=== PATIENT | male | born 1975 | race Caucasian/White ===

== ENCOUNTER → 2023-12-04 | Outpatient (CLI) | payer OTHER ==
--- NOTE | 2023-12-04 13:54 | P.HPBAR ---
Bariatric H&P - History & Physicial H&P Date: 12/04/23 History & Physicial: Visit/CC: initial clinic visit Patient initial contact: Initial weight: Initial weight in pounds: Height: 5 ft 10 in Initial BMI: Last weight: Current weight: 142.428 kg Current weight in pounds: 314.00 Current BMI: 45.0 [place] body weight (based on NIH guidelines): 75.296 kg Excess body weight loss: The patient is a 47 year-old M who presents for Bariatric Assessment. DATE OF SERVICE: 12/04/23 REASON FOR CONSULTATION: History of gastric bypass with complications, morbid obesity HISTORY OF PRESENT ILLNESS: Xavier Daugherty is a 47-year-old male who comes with lifelong morbid obesity. He had prior Ghada-en-Y gastric bypass with [place] [address] [place]. Patient reports having hemorrhaging from the surgery requiring repeat surgery. He then developed a stricture with weight loss down to 165 pounds. He reports complications from multiple balloon dilations with rupture of his gastric pouch requiring emergency surgery. As result of multiple operations, he reports he cannot eat raw vegetables. He cannot eat solids. He does not follow-up with any bariatric provider since 2016, 8 years ago. Reports weight gain up to 220 to 230 pounds. Reports chronic fatigue. Due to the severity of his stricture and dysphagia, he presents similar first time in consultation for bariatric follow-up for his gastric bypass. He still has his gallbladder. Reports epigastric pain. At height of 5 feet 10 inches, ideal body weight is 173 pounds. His highest weight is 415 pounds, body mass index 59.7. His lowest weight is 165 pounds. He has gained 149 pounds. Prior lifetime weight loss 250 pounds. He comes in 314 pounds. Lifetime weight loss declined to 101 pounds. Lifetime percent excess weight loss 42% decreased from 103%. He is 141 pounds overweight. PAST MEDICAL HISTORY: 1. Morbid obesity due to excess calories 2. Body mass index of 59.7, initial 3. Osteoarthritis of the knees. 4. Osteoarthritis of the lower back. 5. Gastroesophageal reflux disease 6. Obstructive sleep apnea PAST SURGICAL HISTORY: 1. Gastric bypass with complications of multiple revision 2. Upper endoscopy with dilation HOME MEDICATIONS: Not recorded at this time ALLERGIES: Not recorded at this time SOCIAL HISTORY: No current tobacco abuse FAMILY HISTORY: No family history of ulcerative colitis disease or Crohn's disease. Family history of morbid obesity. No lupus in the family. No reports of stomach or esophageal cancer. REVIEW OF ORGAN SYSTEMS: CONSTITUTIONAL: At height of 5 feet 10 inches, ideal body weight is 173 pounds. His highest weight is 415 pounds, body mass index 59.7. His lowest weight is 165 pounds. Prior lifetime weight loss 250 pounds. HEENT: Denies any active troubles with vision or hearing. Has troubles with swallowing. ENDOCRINE: Denies diabetes. No hypothyroidism. CARDIOVASCULAR: Denies reports of palpitations or heart attacks or chest pain. RESPIRATORY: Has daytime somnolence. Has asthma. Has chronic obstructive pulmonary disease. GASTROINTESTINAL: No diarrhea. No constipation. Has gastroesophageal reflux disease. GENITOURINARY: Denies bladder urgency. No recent blood in urine MUSCULOSKELETAL: Has lower back pain and joint pain. Has osteoarthritis of the knees. NEURO: No headaches. No seizure disorders. Has neuropathy. PSYCH: Denies depression. No suicidal ideation. RHEUMATOLOGIC: No lupus. No rheumatoid arthritis. HEMATOLOGIC: Denies any abnormal bleeding or bruising. SKIN: No rash. No skin cancer. PHYSICAL EXAM: VITAL SIGNS: Height 5 foot 10 inches, weight 314 pounds. BMI 45.1 Vital Signs Temp 98.4 F 12/04/23 13:10 Pulse 73 12/04/23 13:10 Resp BP 137/85 12/04/23 13:10 Pulse Ox FiO2 Intake & Output 12/04/23 12/04/23 12/05/23 06:59 18:59 06:59 Weight 142.428 kg GENERAL: Well-developed in no acute distress. HEENT: No scleral icterus. Extraocular movements grossly intact. Hears conversational speech. No nasal drainage. NECK: Supple without lymphadenopathy. CHEST: Nonlabored respirations with equal bilateral excursions. CARDIOVASCULAR: Regular rate and regular rhythm. Distal 2+ pulses. ABDOMEN: Obese, soft, nondistended. Epigastric tenderness. MUSCULOSKELETAL: No clubbing, cyanosis. NEURO: No focal or lateralizing signs. Cranial nerves 2 through 12 grossly within normal limits. PSYCH: Appropriate affect. Alert and oriented to person, place and time. SKIN: Good skin turgor. Well perfused. ASSESSMENT: 1. Morbid obesity due to excess calories 2. Body mass index of 59.7, initial 3. Osteoarthritis of the knees. 4. Osteoarthritis of the lower back. 5. Gastroesophageal reflux disease 6. Obstructive sleep apnea 7. Dysphagia 8. Complications from gastric bypass 9. Weight regain following bariatric procedure 10. Epigastric abdominal pain 11. Fatigue PLAN: 1. Recommend ultrasound of the gallbladder due to epigastric abdominal pain 2. Recommend upper GI with small bowel follow-through due to multiple com plications from gastric bypass and revisions including anatomical variation. 3. Recommend a bariatric metabolic panel to evaluate for micro- including macronutrient deficiencies. 4. Dietary surveillance and counseling advised 6. Recommend upper endoscopy after upper GI with small bowel follow-through 7. Recommend 12-lead EKG. 8. Nutritional correction for vitamin deficiencies advised Past Medical History History of Any Multi-Drug Resistant Organisms: None Reported Smoking Status: Never smoker Surgical - Exam Vital Signs Temp Pulse BP 98.4 F 73 137/85 12/04/23 13:10 12/04/23 13:10 12/04/23 13:10 Bariatric Checklist Checklist: Plan: Checklist: EGD: 1. Hiatal hernia: 2. H. Pylori: HgbA1c: Vitamin D: Smoking: Primary care physician referral: Psychiatry clearance: Cardiology clearance: Sleep study: Diet journal: VTE risk score: VTE risk level: Rehab needs at discharge:
[2023-12-04 13:56] VITALS: BP 137/85; PULSE 73; TEMP 98.4; BMI 45.0
== END ==
LOC: BARWHC3 11-27 13:11
PROVIDERS: ATTEND Surgery Plastic and Reconstructive Surgery
DX: E66.01 Morbid (severe) obesity due to excess calories (principal); M17.0 Bilateral primary osteoarthritis of knee; M47.816 Spondylosis without myelopathy or radiculopathy, lumbar region; K21.9 Gastro-esophageal reflux disease without esophagitis; G47.33 Obstructive sleep apnea (adult) (pediatric); K95.89 Other complications of other bariatric procedure; R13.10 Dysphagia, unspecified; R53.83 Other fatigue; R10.13 Epigastric pain; Z71.3 Dietary counseling and surveillance; Z68.43 Body mass index [BMI] 50.0-59.9, adult; Z98.84 Bariatric surgery status
CPT/HCPCS: 99202

== ENCOUNTER → 2023-12-04 | Outpatient (CLI) | payer OTHER ==
[2023-12-04 15:12] LABS: Partial Thromboplastin Time 24.4 sec (22.0-30.0); Prothrombin Time 10.8 sec (10.0-12.5)
[2023-12-04 18:11] LABS: HCT 49.4 % (39.6-50.0); HGB 17.2 g/dL (13.0-17.0); MCH 31.9 pg (27.0-32.0); MCHC 34.8 g/dL (32.0-37.0); MCV 91.7 FL (80.0-97.0); Mean Platelet Volume 10.7 FL (9.5-12.2); NRBC Per 100 WBC 0 X 10*3/uL (0.00-0.01); Platelet Count 185 X 10*3/uL (140-440); RBC 5.39 X 10*6/uL (4.40-5.60); RDW 12.8 % (11.5-14.5); WBC 7.11 X 10*3/uL (4.50-10.00)
[2023-12-04 19:13] LABS: Prealbumin 28.8 mg/dL (18.0-42.0)
[2023-12-04 19:32] LABS: Urine Alcohol Negative (Negative); Urine Barbiturate Negative (Negative); Urine Cocaine Negative (Negative); Urine Methadone Negative (Negative); Urine Opiates Negative (Negative); Urine Phencyclidine Negative (Negative)
[2023-12-04 19:37] LABS: % Iron Saturation 22.38 (15.00-50.00); ALT 34 U/L (10-49); AST 26 U/L (14-35); Albumin 4.4 g/dL (3.8-4.9); Albumin/Globulin Ratio 1.91 Ratio (1.60-3.17); Alkaline Phosphatase 93 U/L (41-126); BUN/Creat Ratio 21.67 Ratio (12.00-20.00); Blood Urea Nitrogen 19.5 mg/dL (9.0-27.0); Calcium 9.5 mg/dL (8.7-10.3); Carbon Dioxide 26.9 mmol/L (21.6-31.8); Chloride 104 mmol/L (96-109); Chol/HDL Ratio 3.84 Ratio; Globulin 2.3 g/dL (1.6-3.3); Glucose 95 mg/dL (70-110); Iron 79 UG/DL (65-175); LDL Cholesterol,Calculated 114.3 mg/dL (0.0-131.0); Phosphorus 3.4 mg/dL (2.4-5.1); Potassium 4.4 mmol/L (3.5-5.5); Sodium 142 mmol/L (135-145); Total Bilirubin 0.6 mg/dL (0.3-1.2); Total Iron Binding Capacity 353 UG/DL (228-460); Total Protein 6.7 g/dL (6.2-8.2)
[2023-12-05 10:37] LABS: Zinc, Serum 93 ug/dL (60-130)
== END | disposition home or self-care (01) ==
LOC: LABWHC1 14:05
PROVIDERS: ATTEND Surgery Plastic and Reconstructive Surgery
DX: E66.01 Morbid (severe) obesity due to excess calories (principal); E89.1 Postprocedural hypoinsulinemia; D50.8 Other iron deficiency anemias; K91.2 Postsurgical malabsorption, not elsewhere classified; E55.9 Vitamin D deficiency, unspecified; E44.0 Moderate protein-calorie malnutrition; K74.1 Hepatic sclerosis; N19 Unspecified kidney failure; T56.894A Toxic effect of other metals, undetermined, initial encounter; K50.90 Crohn's disease, unspecified, without complications
CPT/HCPCS: 84255; 84134; 84425; 80061; 80053; 82607; 82525; 82746; 83540; 83550; 83735; 84100; 84443; 84590; 84630; 85027; 85610; 85730; 82306; 80306; 83970; 83036; 93005; 36415; G0480; 80323

== ENCOUNTER → 2023-12-18 | Outpatient (CLI) | payer OTHER ==
--- NOTE | 2023-12-18 08:46 | US ---
EXAMINATION TYPE: US gallbladder DATE OF EXAM: 12/18/2023 COMPARISON: NONE CLINICAL INDICATION: Male, 47 years old with history of R10.13 EPIGASTRIC PAIN; Patient denies any si gns or symptoms at this time; Hx Gastric Bypass TECHNIQUE: Multiple sonographic images of the right upper quadrant are obtained. FINDINGS: EXAM MEASUREMENTS: Liver Length: 14.4 cm Gallbladder Wall: 0.4 cm CBD: 0.4 cm Right Kidney: 11.9 x 5.0 x 5.6 cm RAM CAR OPERATOR NOTES: Pancreas: Tail obscured by overlying bowel gas. Remaining portion appears unremarkable. Liver: wnl Gallbladder: Nondistended without wall thickening. Multiple stones identified filling the gallbladde r. Evidence for sonographic Abad's sign: No CBD: wnl Right Kidney: wnl IMPRESSION: Cholelithiasis without ultrasound evidence for acute cholecystitis.
--- NOTE | 2023-12-18 12:45 | FL ---
EXAMINATION TYPE: FL UGI air w small bowel DATE OF EXAM: 12/18/2023 COMPARISON: NONE HISTORY: Ghada-en-Y TECHNIQUE: A single contrast UGI study is performed with small bowel follow through. A total of sec onds of fluoroscopic time was utilized during procedure and 7 images obtained. Total dose area produ ct (DAP) in uGy*m?, mGy*cm? (or similar): Not provided. FINDINGS: Tour Bus Driver image of the abdomen shows Calcification right upper quadrant likely related to gall stones. The esophagus shows normal motility and emptying into the stomach. No evidence of hiatal hernia or s tricture noted. Postsurgical change compatible with Ghada-en-Y with no evidence of obstruction. The small bowel study shows normal transit to the colon at 150 minutes. There is normal mucosal fold pattern throughout the small bowel. There is no evidence of any stricture or filling defect noted. IMPRESSION: 1. Findings compatible with Ghada-en-Y surgery with no evidence of obstruction. 2. Cholelithiasis.
== END | disposition home or self-care (01) ==
LOC: RADUSWWP 06:48
PROVIDERS: ATTEND Surgery Plastic and Reconstructive Surgery
DX: K80.20 Calculus of gallbladder without cholecystitis without obstruction (principal)
CPT/HCPCS: 74240; 74248; 76705

== ENCOUNTER → 2024-01-15 | Outpatient (CLI) | payer OTHER ==
[2024-01-15 15:34] VITALS: BP 117/80; PULSE 92; RESP 16; TEMP 98.5; BMI 42.9
--- NOTE | 2024-01-15 16:24 | P.BASOAP ---
Subjective Progress Note Date: 01/15/24 US reviewed with gallstones. UGI reviewed. Labs reviewed. EKG looked great. RUQ pain. Plan for cholecystectomy. Risks reviewed. Objective - Vital Signs Vital signs: Vital Signs Temp 98.5 F 01/15/24 15:31 Pulse 92 01/15/24 15:31 Resp 16 01/15/24 15:31 BP 117/80 01/15/24 15:31 Pulse Ox FiO2 Intake & Output 01/14/24 01/15/24 01/15/24 18:59 06:59 18:59 Weight 135.624 kg Assessment/Plan Plan: Date: 01/15/24 Initial Weight: 142.428 kg Initial BMI: 45.0 Current Weight: 135.624 kg Current BMI: 42.9 Type of Surgery: Total Volume in Band: Previous Volume: Volume Removed: Volume Added: Band Size:
== END ==
LOC: BARWHC3 14:12
PROVIDERS: ATTEND Surgery Plastic and Reconstructive Surgery
DX: E66.01 Morbid (severe) obesity due to excess calories (principal); R10.11 Right upper quadrant pain; Z90.49 Acquired absence of other specified parts of digestive tract; Z68.41 Body mass index [BMI] 40.0-44.9, adult
CPT/HCPCS: 99211

== ENCOUNTER → 2024-02-26 | Outpatient (CLI) | payer OTHER ==
[2024-02-26 15:33] LABS: Basophils # (A) 0.03 X 10*3/uL (0.00-0.10); Basophils % (A) 0.5 %; Eosinophils # (A) 0.11 X 10*3/uL (0.04-0.35); HCT 49.9 % (39.6-50.0); HGB 17.3 g/dL (13.0-17.0); Lymphocytes # (A) 1.55 X 10*3/uL (0.90-5.00); MCHC 34.7 g/dL (32.0-37.0); MCV 92.2 FL (80.0-97.0); Mean Platelet Volume 11.4 FL (9.5-12.2); Monocytes # (A) 0.43 X 10*3/uL (0.20-1.00); Monocytes % (A) 7.8 %; NRBC Per 100 WBC 0 X 10*3/uL (0.00-0.01); Neutrophils # (A) 3.41 X 10*3/uL (1.80-7.70); Neutrophils % (A) 61.5 %; Platelet Count 175 X 10*3/uL (140-440); RBC 5.41 X 10*6/uL (4.40-5.60); WBC 5.54 X 10*3/uL (4.50-10.00)
[2024-02-26 16:07] LABS: ALT 24 U/L (10-49); AST 21 U/L (14-35); Albumin 4.2 g/dL (3.8-4.9); Albumin/Globulin Ratio 1.91 Ratio (1.60-3.17); Alkaline Phosphatase 94 U/L (41-126); Blood Urea Nitrogen 14.8 mg/dL (9.0-27.0); Calcium 9.4 mg/dL (8.7-10.3); Carbon Dioxide 27.3 mmol/L (21.6-31.8); Chloride 106 mmol/L (96-109); Globulin 2.2 g/dL (1.6-3.3); Glucose 91 mg/dL (70-110); Potassium 4.5 mmol/L (3.5-5.5); Sodium 143 mmol/L (135-145); Total Bilirubin 0.6 mg/dL (0.3-1.2); Total Protein 6.4 g/dL (6.2-8.2)
== END | disposition home or self-care (01) ==
LOC: LABPAT 09:21
PROVIDERS: ATTEND Surgery Plastic and Reconstructive Surgery
DX: Z01.812 Encounter for preprocedural laboratory examination (principal)
CPT/HCPCS: 36415; 80053; 85025; 86850; 86900; 86901

== ENCOUNTER 2024-03-02 06:27 | Day surgery (SDC) | payer OTHER ==
[~2024-03-02 06:27] MED LIST: DEXAMETHASONE SOD PHOSPHATE 4 MG/ML 1 ML VIAL IV ONE; LIDOCAINE 1% (10MG/ML) FOR IV START INTRADERMA PRN; MIDAZOLAM 2 MG/2 ML VIAL IV PRN; SCOPOLAMINE 1 MG/72 HR PATCH TRANSDERM ONE; fentaNYL (PF) 50 MCG/ML 2 ML AMP IVP PRN
[2024-03-02] MEDS ORDERED: INDOCYANINE GREEN 25 MG VIAL IV STA (06:43)
--- NOTE | 2024-03-02 06:43 | P.GSHP ---
History of Present Illness H&P Date: 03/02/24 CHIEF COMPLAINT: Cholecystitis HISTORY OF PRESENT ILLNESS: The patient is a 48-year-old male who presents with history of epigastric including right upper quadrant abdominal pain. He underwent diagnostic studies for the gallbladder. Separately his clinical picture was consistent with cholecystitis. Now he presents for surgical intervention. PAST MEDICAL HISTORY: Please see list PAST SURGICAL HISTORY: Please see list MEDICATIONS: Please see list ALLERGIES: Denies. SOCIAL HISTORY: No illicit drug use or recent tobacco use FAMILY HISTORY: Pertinent for gallbladder disease REVIEW OF ORGAN SYSTEMS: CONSTITUTIONAL: No reports of fevers or chills. HEENT: Denies any troubles with the vision or hearing. ENDOCRINE: No reports of hypothyroidism. No diabetes. RESPIRATORY: No recent pneumonias. CARDIOVASCULAR: Denies chest pain or palpitations GI: No blood in stools or constipation. MUSCULOSKELETAL: Has occasional joint pain including back pain. NEURO: No seizure disorders or headaches. No recent stroke. PSYCH: No depression or suicidal ideation. HEMATOLOGIC: No personal or family history of DVTs or pulmonary emboli. PHYSICAL EXAM: VITAL SIGNS: Afebrile vital signs stable GENERAL: Well-developed pleasant male in no acute distress. HEENT: No scleral icterus. Extraocular movements grossly intact. Moist buccal mucosa. NECK: Supple without lymphadenopathy. CHEST: Unlabored respirations. Equal bilateral excursions. CARDIOVASCULAR: Regular rate regular rhythm rhythm. Distal 2+ pulses. ABDOMEN: Soft, nondistended. Tender along the epigastrium and right upper quadrant. MUSCULOSKELETAL: No clubbing, cyanosis, or edema. NEURO : No focal or lateralizing signs. Cranial nerves II-12 within normal limits. PSYCH: Alert and oriented to person, place and time. SKIN: Well perfused. Good skin turgor. ASSESSMENT: 1. Epigastric and right upper quadrant abdominal pain 2. Chronic cholecystitis PLAN: 1. Will need a robotic cholecystectomy possible open. Benefits and risks were described. 2. Heparin for DVT prophylaxis 5000 units. 3. Antibiotic prophylaxis. 4. CBC and CMP on day of procedure 5. Non-narcotic pre and post op pain management reviewed. 6. Indocyanine green for biliary imaging. Past Medical History Past Medical History: Osteoarthritis (OA), Sleep Apnea/CPAP/BIPAP Additional Past Medical History / Comment(s): SLEEP APNEA RESOLVED AFTER RYGB History of Any Multi-Drug Resistant Organisms: None Reported Past Surgical History: Bariatric Surgery, Orthopedic Surgery Additional Past Surgical History / Comment(s): RYGB 2014; REVISION 2016, RT SHOULDER SURG 2019 Past Anesthesia/Blood Transfusion Reactions: No Reported Reaction Smoking Status: Never smoker Medications and Allergies Home Medications Medication Instructions Recorded Confirmed Type Multivitamins, Thera [Multivitamin 1 tab PO DAILY 02/26/24 02/26/24 History (formulary)] Vitamin B Complex 1 each PO DAILY 02/26/24 02/26/24 History Vitamin B12 1 dose PO DAILY 02/26/24 02/26/24 History Vitamin D3 1 dose PO DAILY 02/26/24 02/26/24 History Allergies Allergy/AdvReac Type Severity Reaction Status Date / Time No Known Allergies Allergy Verified 02/26/24 15:31
[2024-03-02] MEDS: HEPARIN SODIUM,PORCINE 5,000 UNIT/ML 1 ML VIAL SQ PRN (07:35)
[2024-03-02] MEDS: ONDANSETRON 4 MG/2 ML VIAL IVP ONE (07:35)
[2024-03-02] MEDS: LACTATED RINGERS 1,000 ML IV SCH (07:35)
[2024-03-02] MEDS: IV FLUID CONTINUATION 1,000 ML IV ONE (07:41)
[2024-03-02] MEDS: LIDOCAINE 1%-EPI 1:100,000 20 ML VIAL SQ ONE (08:02)
[2024-03-02] MEDS ORDERED: ROCURONIUM 10 MG/ML (5 ML VIAL) IV ONE (08:05)
[2024-03-02] MEDS ORDERED: PHENYLEPHRINE 10 MG/ML VIAL ONE (08:05)
[2024-03-02] MEDS ORDERED: PROPOFOL 10 MG/ML 20 ML VIAL IV ONE (08:05)
[2024-03-02] MEDS ORDERED: fentaNYL (PF) 50 MCG/ML 2 ML AMP ONE (08:05)
[2024-03-02] MEDS ORDERED: SUCCINYLCHOLINE CHLORIDE 200 MG/10 ML VIAL IV ONE (08:05)
[2024-03-02] MEDS ORDERED: GLYCOPYRROLATE 0.2 MG/ML 2 ML VIAL ONE (08:05)
[2024-03-02] MEDS ORDERED: LIDOCAINE 1% INJ 10MG/ML (20 ML MDV) ONE (08:05)
[2024-03-02] MEDS ORDERED: MIDAZOLAM 2 MG/2 ML VIAL ONE (08:05)
[2024-03-02] MEDS ORDERED: NEOSTIGMINE 1 MG/ML 10 ML VIAL ONE (08:05)
[2024-03-02] MEDS: ceFAZolin 3 GM in SODIUM CHLORIDE 0.9% 100 ML IVPB PRN (08:09)
[2024-03-02 09:20] VITALS: TEMP 97
--- NOTE | 2024-03-02 09:35 | P.OP ---
Date of Procedure: 03/02/24 Description of Procedure: SURGEON: SHENA GALINDO MD PREOPERATIVE DIAGNOSES: 1. Symptomatic gallstones 2. Right upper quadrant abdominal pain 3. Osteoarthritis of the knees. 4. Osteoarthritis of the lower back. 5. Gastroesophageal reflux disease 6. Obstructive sleep apnea 7. Dysphagia 8. Complications from gastric bypass 9. Weight regain following bariatric procedure 10. Epigastric abdominal pain 11. Fatigue 12. Morbid obesity due to excess calories 13. Body mass index of 59.7, initial to 40.8 POSTOPERATIVE DIAGNOSES: 1. Symptomatic gallstones 2. Right upper quadrant abdominal pain 3. Osteoarthritis of the knees. 4. Osteoarthritis of the lower back. 5. Gastroesophageal reflux disease 6. Obstructive sleep apnea 7. Dysphagia 8. Complications from gastric bypass 9. Weight regain following bariatric procedure 10. Epigastric abdominal pain 11. Fatigue 12. Morbid obesity due to excess calories 13. Body mass index of 59.7, initial to 40.8 14. Epigastric abdominal peritoneal lesions OPERATION: 1. Robotic-assisted da Shaylee Xi laparoscopic lysis of adhesions 2. Robotic-assisted da Shaylee Xi laparoscopic cholecystectomy, multiport with FIREFLY ESTIMATED BLOOD LOSS: 5 mL. SPECIMENS REMOVED: Gallbladder. COMPLICATIONS: None. OPERATIVE FINDINGS: 1. Moderate scarring over entire gallbladder with peritoneal adhesions, pericholecystic with features of chronic cholecystitis 2. Moderate epigastric and left upper quadrant adhesions involving gastric bypass, Ghada limb 3. Large gallstones 4 x 3 cm impacted in gallbladder. INDICATIONS: The patient is a 48-year-old male who presents with symptomatic gallstones. Robotic assisted laparoscopic approach was described. Benefits and risks of the procedure including but not limited to bleeding, infection, injury to the biliary tree was described. Informed consent was obtained. DESCRIPTION OF PROCEDURE: Patient was brought to the operating room, placed in supine position. After general induction, the abdomen had been prepped and draped in standard sterile fashion. The robotic da Shaylee XI system was primed. After a timeout protocol was performed, the patient had been prepped and draped in standard sterile fashion. The patient was injected with indocyanine green. A 5 mm 0 degrees laparoscopic trocar entry was performed along the left upper quadrant. The abdomen insufflated to 15 mmHg pressure which was tolerated well. Diagnostic laparoscopy demonstrated no injury to bowel viscera or mesentery. The liver surface was unremarkable. Next, two 8 mm robotic ports were placed along the right upper abdomen. The camera 8-mm port was maintained along the epigastrium. Another 8 mm port was placed along the left upper abdominal wall after exchanging the 5 mm port. Please note that the ports were placed at least 10 to 15 cm away from the target anatomy of the gallbladder. The robot was docked along the left lateral abdomen. The patient was repositioned in reverse Trendelenburg position. Using a grasper for arm 3, a grasper for arm 4, including hook cautery for arm 1, the robotic system was docked and primed as described. Instruments were interchanged by the nurses medical assistants phlebotomists including hook cautery, Bovie cautery and clip appliers. I had sat at the console. The gallbladder was scarred with peritoneal adhesions. Moderate peritoneal adhesions were identified of the epigastrium and omentum to abdominal wall also involving the Ghada limb. Lysis of adhesions was performed to free the gallbladder from the surrounding tissues using hook cautery. The gallbladder was completely contracted. Dome down technique was performed the gallbladder starting from the fundus toward the infundibulum. Next attention was brought to the infundibulum and cystic structures. The infundibulum and cystic duct were dissected free from surrounding tissues. The cystic duct was isolated. FIREFLY was used to identify the cystic artery and cystic structures. A critical view of safety was obtained. Large PLASTIC clips were used throughout the entire case. Using a clip terra cotta roofer, 3 clips were placed at the junction of the infundibulum and cystic duct. The cystic duct was divided between clips. Next, the cystic artery was cauterized. Total of 3 clips used during the procedure. Electro-Bovie cautery was used to remove the gallbladder from the hepatic fossa. Hemostasis was checked and found to be adequate. The robot was undocked. I re-scrubbed into the case. Using a 10 mm Endo Catch bag via the left upper quadrant incision, the specimen was removed from the abdominal cavity. All pneumoperitoneum instruments were evacuated from the abdominal cavity. The incisions were reapproximated using 4-0 Monocryl in an interrupted subcuticular fashion. Fascial defects were less than 8 mm in size. Please note along the trocar sites, local anesthetic was placed as a field block prior to insertion of all instruments. Liquid glue was applied to the skin. At the end of the procedure needle, sponge, and instrument count had been verified correct by the surgical processor. The patient was transferred to postanesthesia care unit in stable condition. Intraoperative films were shared with the patient's family. Plan - Discharge Summary Discharge Rx Participant: No New Discharge Prescriptions: New Simethicone [Gas-X] 125 mg PO AC-TID PRN #20 capsule PRN Reason: Pain Acetaminophen Tab [Tylenol Tab] 1,000 mg PO Q6HR PRN #30 tablet PRN Reason: Pain Continue Multivitamins, Thera [Multivitamin (formulary)] 1 tab PO DAILY Vitamin D3 1 dose PO DAILY Vitamin B12 1 dose PO DAILY Vitamin B Complex 1 each PO DAILY Discharge Medication List Multivitamins, Thera [Multivitamin (formulary)] 1 tab PO DAILY 02/26/24 [History] Vitamin B Complex 1 each PO DAILY 02/26/24 [History] Vitamin B12 1 dose PO DAILY 02/26/24 [History] Vitamin D3 1 dose PO DAILY 02/26/24 [History] Acetaminophen Tab [Tylenol Tab] 1,000 mg PO Q6HR PRN #30 tablet 03/02/24 [Rx] Simethicone [Gas-X] 125 mg PO AC-TID PRN #20 capsule 03/02/24 [Rx] [facility] up [facility]ment(s[facility]Ref[facility] [facility] [place]24 9:00 am Patient Instructions/Handouts: Low Fat Diet (DC), Laparoscopic Cholecystectomy (DC) Activity/Diet/Wound Care/Special Instructions: NO LONG DRIVES OR AIRPLANE RIDES OVER 30 MINUTES FOR THE NEXT 2 WEEKS DUE TO HIGH RISK OF PULMONARY EMBOLISM/DVTs Recommend low-fat diet for the next 2 days. No lifting over 10 pounds in 2 weeks until Mar 16December shower. No bath tub soaks for two weeks until Mar 16 Diet as tolerated. Use Tylenol, simethicone scheduled for the next 24-48 hours for best pain relief. Use ice along incisions for today to prevent swelling. Discharge Disposition: HOME SELF-CARE
[2024-03-02] MEDS: droPERidol 5 MG/2 ML VIAL IVP ONE (09:40)
[2024-03-02] MEDS: HYDROmorphone 0.5 MG/0.5 ML SYRINGE IVP PRN (09:43)
[2024-03-02 10:25] VITALS: RESP 16
[2024-03-02 11:13] VITALS: BP 128/69; PULSE 68
[2024-03-02] MEDS: LACTATED RINGERS 1,000 ML IV ONE (12:11)
== END 2024-03-02 13:46 | disposition home or self-care (01) ==
LOC: OR 06:27
PROVIDERS: ATTEND Surgery Plastic and Reconstructive Surgery
DX: G47.33 Obstructive sleep apnea (adult) (pediatric) (principal); R13.10 Dysphagia, unspecified; R92.0 Mammographic microcalcification found on diagnostic imaging of breast; M17.0 Bilateral primary osteoarthritis of knee; E66.01 Morbid (severe) obesity due to excess calories; Z68.43 Body mass index [BMI] 50.0-59.9, adult; Z83.79 Family history of other diseases of the digestive system; Z79.899 Other long term (current) drug therapy
CPT/HCPCS: 47563; S2900; 88304